=== PATIENT | male | born 1995 | race Caucasian/White ===

== ENCOUNTER 2017-02-09 22:49 | Emergency (ER) | payer OTHER, MEDICAID ==
[2017-02-09 23:04] VITALS: BP 154/100; PULSE 98; RESP 18; TEMP 98.7; O2SAT 95
--- NOTE | 2017-02-09 23:09 | PD ---
HPI Chief Complaint: Lind Act Time Seen by Provider: 23:03 Travel History International Travel<30 days: No Contact w/Intl Traveler<30days: No History of Present Illness HPI 21yo M brought in by EVAC as lind act today. As per EVAC, pt was diaphoretic, hypotensive and [place] police [place] and vomited. Pt said he was passing a cigarette but denies drugs. As per Lind Act, pt made statements that he intentionally cut himself and a knife was found on him. He does have superficial lacerations on left forearm but he denies cutting himself. He does not know where they come from. Denies any fever, chest pain, sob, abdominal pain. He states his nausea resolved. Pt is mildly tachycardic but hypertensive here. [facility] Social History Tobacco Use: No Allergies-Medications (Allergen,Severity, Reaction): Coded Allergies: No Known Allergies (Unverified , 02/09/17) Reported Meds & Prescriptions Reported Meds & Active Scripts Active No Active Prescriptions or Reported Medications Review of Systems Except as stated in HPI: all other systems reviewed are Neg Physical Exam Narrative GENERAL: 21yo M in mild distress. SKIN: Diaphoretic. HEAD: Atraumatic. Normocephalic. EYES: Pupils equal and round at 4mm bilaterally. ENT: No nasal bleeding or discharge. Mucous membranes pink and moist. NECK: Trachea midline. No JVD. CARDIOVASCULAR: Regular rate and rhythm. No murmur appreciated. RESPIRATORY: No accessory muscle use. Clear to auscultation. Breath sounds equal bilaterally. GASTROINTESTINAL: Abdomen soft, non-tender, nondistended. MUSCULOSKELETAL: No obvious deformities. No clubbing. No cyanosis. No edema. LUE: Multiple very superficial lacerations on left forearm. Distal pulses intact. NEUROLOGICAL: Awake and alert. No obvious cranial nerve deficits. Motor grossly within normal limits. Normal speech. Data Data Last Documented VS Vital Signs Date Time Temp Pulse Resp B/P (MAP) Pulse Ox O2 Delivery O2 Flow Rate FiO2 02/10/17 06:16 99.0 65 18 130/59 (82) 97 Room Air Orders Orders Complete Blood Count With Diff (02/09/17 23:03) Comprehensive Metabolic Panel (02/09/17 23:03) Urinalysis - C+S If Indicated (02/09/17 23:03) Psych Screen (02/09/17 23:03) Drug Screen, Random Urine (02/09/17 23:03) Alcohol (Ethanol) (02/09/17 23:03) Salicylates (Aspirin) (02/09/17 23:03) Tylenol (Acetaminophen) (02/09/17 23:03) Sodium Chlor 0.9% 1000 Ml Inj (Ns 1000 M (02/09/17 23:15) Labs Laboratory Tests Test 02/09/17 23:10 White Blood Count 7.4 TH/MM3 Red Blood Count 4.72 MIL/MM3 Hemoglobin 14.8 GM/DL Hematocrit 42.9 % Mean Corpuscular Volume 90.8 FL Mean Corpuscular Hemoglobin 31.3 PG Mean Corpuscular Hemoglobin Concent 34.4 % Red Cell Distribution Width 13.3 % Platelet Count 223 TH/MM3 Mean Platelet Volume 9.3 FL Neutrophils (%) (Auto) 57.9 % Lymphocytes (%) (Auto) 31.4 % Monocytes (%) (Auto) 8.8 % Eosinophils (%) (Auto) 1.5 % Basophils (%) (Auto) 0.4 % Neutrophils # (Auto) 4.3 TH/MM3 Lymphocytes # (Auto) 2.3 TH/MM3 Monocytes # (Auto) 0.7 TH/MM3 Eosinophils # (Auto) 0.1 TH/MM3 Basophils # (Auto) 0.0 TH/MM3 CBC Comment DIFF FINAL Differential Comment Blood Urea Nitrogen 12 MG/DL Creatinine 1.20 MG/DL Random Glucose 84 MG/DL Total Protein 6.5 GM/DL Albumin 3.4 GM/DL Calcium Level 8.6 MG/DL Alkaline Phosphatase 64 U/L Aspartate Amino Transf (AST/SGOT) 80 U/L Alanine Aminotransferase (ALT/SGPT) 158 U/L Total Bilirubin 0.5 MG/DL Sodium Level 145 MEQ/L Potassium Level 3.4 MEQ/L Chloride Level 110 MEQ/L Carbon Dioxide Level 26.2 MEQ/L Anion Gap 9 MEQ/L Estimat Glomerular Filtration Rate 77 ML/MIN Salicylates Level LESS THAN 1.7 MG/DL Acetaminophen Level LESS THAN 2.0 MCG/ML Ethyl Alcohol Level LESS THAN 3 MG/DL MDM Medical Decision Making Medical Screen Exam Complete: Yes Emergency Medical Condition: Yes Interpretation(s) EKG: Sinus tachycardia at 102bpm. LAD. No ST segment elevation or depression. Differential Diagnosis Drug use vs. intoxication vs. suicidal ideation vs. dehydration Narrative Course 21yo M brought in as lind act for suicidal ideation. Pt had a knife on him and told officer that he cut himself. Denied to me. Labs reviewed, no leukocytosis. Elevated AST/ALT. Pt has no abdominal pain. Alcohol negative. Acetaminophen and salicylate negative. Pt given NS IVF. Vital signs improved. Pt is medically clear for psych evaluation. Diagnosis Primary Impression: Suicidal ideation Scripts No Active Prescriptions or Reported Meds Lilibeth Curry DO Feb 09, 2017 23:09
[2017-02-09] MEDS ORDERED: SODIUM CHLOR 0.9% 1000 ML INJ 1,000 ML IV ONE (23:15)
[2017-02-10 00:25] LABS: AUTOMATED NEUTROPHIL # 4.3 TH/MM3 (1.8-7.7); BASOPHIL % 0.4 % (0.0-2.0); EOSINOPHIL # 0.1 TH/MM3 (0-0.4); EOSINOPHIL % 1.5 % (0.0-4.0); HEMATOCRIT 42.9 % (39.0-51.0); HEMO FLAGS DIFF FINAL; LYMPH % 31.4 % (9.0-44.0); LYMPHOCYTE # 2.3 TH/MM3 (1.0-4.8); MEAN CELL VOLUME 90.8 FL (80.0-100.0); MEAN CORPUSCULAR HEMOGLOBIN 31.3 PG (27.0-34.0); MEAN CORPUSCULAR HGB CONC 34.4 % (32.0-36.0); MONO % 8.8 % (0.0-8.0); NEUT % 57.9 % (16.0-70.0); PLATELET COUNT 223 TH/MM3 (150-450); RED BLOOD COUNT 4.72 MIL/MM3 (4.50-5.90); RED CELL DISTRIBUTION WIDTH 13.3 % (11.6-17.2); WHITE BLOOD COUNT 7.4 TH/MM3 (4.0-11.0)
[2017-02-10 00:40] LABS: ALKALINE PHOSPHATASE 64 U/L (45-117); TOTAL BILIRUBIN ADULT 0.5 MG/DL (0.2-1.0)
[2017-02-10 00:41] LABS: ALT (GPT) 158 U/L (9-52); ANION GAP 9 MEQ/L (5-15); AST (GOT) 80 U/L (15-39); BICARBONATE 26.2 MEQ/L (21.0-32.0); BLOOD UREA NITROGEN 12 MG/DL (7-18); CHLORIDE 110 MEQ/L (98-107); GLOMERULAR FILTRATION RATE 77 ML/MIN (>89); POTASSIUM 3.4 MEQ/L (3.5-5.1); SODIUM (NA) 145 MEQ/L (136-145)
[2017-02-10 00:50] LABS: ACETAMINOPHEN LESS THAN 2.0 MCG/ML (10.0-30.0); ALCOHOL LESS THAN 3 MG/DL (0-5)
[2017-02-10 02:21] VITALS: BP 109/59; PULSE 80; RESP 17; O2SAT 100
[2017-02-10 06:16] VITALS: BP 130/59; PULSE 65; RESP 18; TEMP 99; O2SAT 97
[2017-02-10 10:51] LABS: BLOOD, URINE NEG (NEG); GLUCOSE,URINE NEG (NEG); KETONE, URINE NEG (NEG); NITRITE,URINE NEG (NEG); URINE COLOR LIGHT-YELLOW (YELLW/STRAW)
[2017-02-10 10:59] LABS: COMMENT (UR) CULT NOT INDICATED; CULTURE IF INDICATED CULT NOT INDICATED
--- NOTE | 2017-02-10 13:35 | EKG ---
Date Performed: 02/09/2017 Time Performed: 22:58:49 PTAGE: 21 years EKG: SINUS TACHYCARDIA ABNORMAL RHYTHM ECG Compared to PREVIOUS TRACING , the extreme sinus tachycardia is no longer evident. The septal T-wave changes have resolved. The tracing no longer meets criteria for right ventricular hypertrophy and rig ht axis deviation. Significant serial changes have occurred since the prior tracing. PREVIOUS TRACING DOCTOR: Mable Reddy Interpretating Date/Time 02/10/2017 13:34:01
[2017-02-10 16:26] VITALS: BP 118/66; PULSE 55; TEMP 96.3; O2SAT 97
--- NOTE | 2017-02-10 17:13 | PD ---
History of Present Illness Chief Complaint: OD/ Ingestion Time Seen by Provider: 16:30 Travel History International Travel<30 Days: No Contact w/Intl Traveler<30days: No Known affected area: No Legal Status Legal Status: Lind Act Lind Act Signed By: Tiff Basilio History of Present Illness: History of Present Illness HPI 3o yo male with no psychiatric history brought in by EVAC under a lind act initiated by RODRIGUEZ. As per Lind Act, pt made statements that he intentionally cut himself and a knife was found on him.He has very superficial lacerations on left arm which he tells me are from work. . As per EVAC, pt was diaphoretic , hypotensive and walked up to the policeman and vomited.he admits that he smoked a cigar and he believes it was laced with spice. His toxicology is negative for any substance. He was monitored in secure environment and has presented no behavioral concerns and no suicidality. Patient is alert and oriented, calm and engaging. Speech is clear, logical. There is no psychosis and no daylin. He denies any suicidal ideation and he denies that he told the police that he wanted to hurt himself. He states that he was walking to his grandparents house with a friend and that the friend gave him some cigar to smoke. It was after he smoked the cigar that he felt sick. He denies any psychiatric symptomatology and is requesting to be discharged. he tells me he has to go home as he is starting anew job and needs to take care of his taylor by tomorrow in order not to go to long-term. PFSH Past Medical History Medical History: Denies Significant Hx Diminished Hearing: No Tetanus Vaccination: Unknown Influenza Vaccination: No Past Surgical History Surgical History: No Previous Surgery Psychiatric History Psychiatric History Hx Psychiatric Treatment: DENIES at present. Did receive tretametn for ADDas a child History of Inpatient Treatment: No Guns or firearms in home: No Social History Single, lives with grandparents. 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 Hx Alcohol Use: Yes Hx Tobacco Use: No Hx Substance Use: Yes (K2) Substance Use Type: Alcohol, Crack, Marijuana, Amphetamines-Stimulants, Nicotine/Cigarettes, Prescription Medications, Benzos (Valium,Xanax), Heroin, Cocaine, Synth Opiates-Pain Pills Other Substances Used: In the past. currently denies use. Hx of Substance Use Treatment: Yes Family Psychiatric History Negative Allergies-Medications (Allergen,Severity, Reaction): Coded Allergies: No Known Allergies (Unverified , 02/09/17) Reported Meds & Prescriptions Reported Meds & Active Scripts Active No Active Prescriptions or Reported Medications MDM Medical Decision Making Medical Record Reviewed: Yes Assessment/Plan 3o yo male with no psychiatric history brought in by EVAC under a lind act initiated by RODRIGUEZ. As per Lind Act, pt made statements that he intentionally cut himself and a knife was found on him.He has very superficial lacerations on left arm which he tells me are from work. . As per EVAC, pt was diaphoretic , hypotensive and walked up to the policeman and vomited.he admits that he smoked a cigar and he believes it was laced with spice. His toxicology is negative for any substance. He was monitored in secure environment and has presented no behavioral concerns and no suicidality. No evidence of unstable mental illness as defined under the Lind act.Main issue seems to be substance use. Psychiatrically clear for discharge. Lift Lind act. Orders Orders Complete Blood Count With Diff (02/09/17 23:03) Comprehensive Metabolic Panel (02/09/17 23:03) Urinalysis - C+S If Indicated (02/09/17 23:03) Psych Screen (02/09/17 23:03) Drug Screen, Random Urine (02/09/17 23:03) Alcohol (Ethanol) (02/09/17 23:03) Salicylates (Aspirin) (02/09/17 23:03) Tylenol (Acetaminophen) (02/09/17 23:03) Sodium Chlor 0.9% 1000 Ml Inj (Ns 1000 M (02/09/17 23:15) Electrocardiogram (02/09/17 22:58) Diet Regular Basic (02/10/17 Breakfast) Diet Regular Basic (02/10/17 Lunch) Diet Regular Basic (02/10/17 Dinner) Results Vital Signs Date Time Temp Pulse Resp B/P (MAP) Pulse Ox O2 Delivery O2 Flow Rate FiO2 10/12/17 16:26 96.3 55 118/66 (83) 97 02/10/17 06:16 99.0 65 18 130/59 (82) 97 Room Air 02/10/17 02:21 80 17 109/59 (76) 100 Room Air 02/09/17 23:04 98.7 98 18 154/100 (118) 95 Laboratory Tests Test 02/09/17 23:10 02/10/17 10:00 White Blood Count 7.4 Red Blood Count 4.72 Hemoglobin 14.8 Hematocrit 42.9 Mean Corpuscular Volume 90.8 Mean Corpuscular Hemoglobin 31.3 Mean Corpuscular Hemoglobin Concent 34.4 Red Cell Distribution Width 13.3 Platelet Count 223 Mean Platelet Volume 9.3 Neutrophils (%) (Auto) 57.9 Lymphocytes (%) (Auto) 31.4 Monocytes (%) (Auto) 8.8 Eosinophils (%) (Auto) 1.5 Basophils (%) (Auto) 0.4 Neutrophils # (Auto) 4.3 Lymphocytes # (Auto) 2.3 Monocytes # (Auto) 0.7 Eosinophils # (Auto) 0.1 Basophils # (Auto) 0.0 CBC Comment DIFF FINAL Differential Comment Blood Urea Nitrogen 12 Creatinine 1.20 Random Glucose 84 Total Protein 6.5 Albumin 3.4 Calcium Level 8.6 Alkaline Phosphatase 64 Aspartate Amino Transf (AST/SGOT) 80 Alanine Aminotransferase (ALT/SGPT) 158 Total Bilirubin 0.5 Sodium Level 145 Potassium Level 3.4 Chloride Level 110 Carbon Dioxide Level 26.2 Anion Gap 9 Estimat Glomerular Filtration Rate 77 Salicylates Level LESS THAN 1.7 Acetaminophen Level LESS THAN 2.0 Ethyl Alcohol Level LESS THAN 3 Urine Color LIGHT-YELLOW Urine Turbidity CLEAR Urine pH 8.0 Urine Specific [place] 1.006 Urine Protein NEG Urine Glucose (UA) NEG Urine Ketones NEG Urine Occult Blood NEG Urine Nitrite NEG Urine Bilirubin NEG Urine Urobilinogen LESS THAN 2.0 Urine Leukocyte Esterase NEG Urine WBC LESS THAN 1 Microscopic Urinalysis Comment CULT NOT INDICATED Urine Opiates Screen NEG Urine Barbiturates Screen NEG Urine Amphetamines Screen NEG Urine Benzodiazepines Screen NEG Urine Cocaine Screen NEG Urine Cannabinoids Screen NEG Diagnosis Primary Impression: Substance abuse Ruled Out: Suicidal ideation Psychiatrically Cleared: Yes Med/ Other Pt Specific Info: No Meds Exist/No RX given Prescriptions No Active Prescriptions or Reported Meds Disposition: 01 DISCHARGE HOME Condition: Stable MiltonKaylan LUGO Feb 10, 2017 17:13
--- NOTE | 2017-02-10 17:20 | PD ---
Physical Exam Narrative I was asked by the psych department to discharge patient after patient was evaluated and Lind acted lifted by psych. Patient was previously medically cleared by previous provider. Please see their documentation for full H&P. Patient denies any homicidal or suicidal ideations. Denies any medical concerns at this time. Data Data Last Documented VS Vital Signs Date Time Temp Pulse Resp B/P (MAP) Pulse Ox O2 Delivery O2 Flow Rate FiO2 02/10/17 16:26 96.3 55 118/66 (83) 97 02/10/17 06:16 18 Room Air Orders Orders Complete Blood Count With Diff (02/09/17 23:03) Comprehensive Metabolic Panel (02/09/17 23:03) Urinalysis - C+S If Indicated (02/09/17 23:03) Psych Screen (02/09/17 23:03) Drug Screen, Random Urine (02/09/17 23:03) Alcohol (Ethanol) (02/09/17 23:03) Salicylates (Aspirin) (02/09/17 23:03) Tylenol (Acetaminophen) (02/09/17 23:03) Sodium Chlor 0.9% 1000 Ml Inj (Ns 1000 M (02/09/17 23:15) Electrocardiogram (02/09/17 22:58) Diet Regular Basic (02/10/17 Breakfast) Diet Regular Basic (02/10/17 Lunch) Diet Regular Basic (02/10/17 Dinner) Ed Discharge Order (02/10/17 17:20) Labs Laboratory Tests Test 02/09/17 23:10 02/10/17 10:00 White Blood Count 7.4 TH/MM3 Red Blood Count 4.72 MIL/MM3 Hemoglobin 14.8 GM/DL Hematocrit 42.9 % Mean Corpuscular Volume 90.8 FL Mean Corpuscular Hemoglobin 31.3 PG Mean Corpuscular Hemoglobin Concent 34.4 % Red Cell Distribution Width 13.3 % Platelet Count 223 TH/MM3 Mean Platelet Volume 9.3 FL Neutrophils (%) (Auto) 57.9 % Lymphocytes (%) (Auto) 31.4 % Monocytes (%) (Auto) 8.8 % Eosinophils (%) (Auto) 1.5 % Basophils (%) (Auto) 0.4 % Neutrophils # (Auto) 4.3 TH/MM3 Lymphocytes # (Auto) 2.3 TH/MM3 Monocytes # (Auto) 0.7 TH/MM3 Eosinophils # (Auto) 0.1 TH/MM3 Basophils # (Auto) 0.0 TH/MM3 CBC Comment DIFF FINAL Differential Comment Blood Urea Nitrogen 12 MG/DL Creatinine 1.20 MG/DL Random Glucose 84 MG/DL Total Protein 6.5 GM/DL Albumin 3.4 GM/DL Calcium Level 8.6 MG/DL Alkaline Phosphatase 64 U/L Aspartate Amino Transf (AST/SGOT) 80 U/L Alanine Aminotransferase (ALT/SGPT) 158 U/L Total Bilirubin 0.5 MG/DL Sodium Level 145 MEQ/L Potassium Level 3.4 MEQ/L Chloride Level 110 MEQ/L Carbon Dioxide Level 26.2 MEQ/L Anion Gap 9 MEQ/L Estimat Glomerular Filtration Rate 77 ML/MIN Salicylates Level LESS THAN 1.7 MG/DL Acetaminophen Level LESS THAN 2.0 MCG/ML Ethyl Alcohol Level LESS THAN 3 MG/DL Urine Color LIGHT-YELLOW Urine Turbidity CLEAR Urine pH 8.0 Urine Specific [place] 1.006 Urine Protein NEG mg/dL Urine Glucose (UA) NEG mg/dL Urine Ketones NEG mg/dL Urine Occult Blood NEG Urine Nitrite NEG Urine Bilirubin NEG Urine Urobilinogen LESS THAN 2.0 MG/DL Urine Leukocyte Esterase NEG Urine WBC LESS THAN 1 /hpf Microscopic Urinalysis Comment CULT NOT INDICATED Urine Opiates Screen NEG Urine Barbiturates Screen NEG Urine Amphetamines Screen NEG Urine Benzodiazepines Screen NEG Urine Cocaine Screen NEG Urine Cannabinoids Screen NEG MDM Supervised Visit with FRANKIE: No Narrative Course Patient in no obvious distress upon re-evaluation. Any questions/concerns in reference to patient diagnosis/condition discussed and clarified prior to patient's discharge. Reinforced sheer importance of close follow up with patient 's primary physician or primary care clinic. Instructed patient to return to ED immediately, if symptoms return/worsen or for any emergent concerns. Patient showed understanding of above instructions. Further instructions and recommendations were detailed in discharge paperwork. Patient ambulated without difficulty out of ED at discharge. Diagnosis Primary Impression: Substance abuse Ruled Out: Suicidal ideation Referrals: [facility] Patient Instructions: General Instructions Additional Instruction: Follow-up with your primary care physician and/or Jayro Hernandez for further evaluation. Don't do drugs. Return to the emergency department if symptoms get worse or for any emergent concerns. Scripts No Active Prescriptions or Reported Meds Disposition: 01 DISCHARGE HOME Condition: Stable Fran Figueredo Feb 10, 2017 17:20
[2017-02-10 17:38] VITALS: BP 188/66; TEMP 98.3
== END 2017-02-10 17:41 | disposition home or self-care (01) ==
LOC: NEPC 22:49 → NEPJ 02-10 17:41
DX: F19.10 Other psychoactive substance abuse, uncomplicated (principal); I95.9 Hypotension, unspecified; R61 Generalized hyperhidrosis
CPT/HCPCS: 80053; 80307; 81001; 85025; 93005; 99284; J7030

== ENCOUNTER 2017-03-30 19:47 | Emergency (ER) | payer OTHER ==
[~2017-03-30] VITALS: Ht 175.3 cm; Wt 65.0 kg
[2017-03-30 20:09] VITALS: BP 117/63; PULSE 94; RESP 20; TEMP 98.3; O2SAT 100
--- NOTE | 2017-03-30 20:33 | PD ---
HPI Chief Complaint: Psychiatric Symptoms Time Seen by Provider: 20:03 Travel History International Travel<30 days: No Contact w/Intl Traveler<30days: No Traveled to known affect area: No History of Present Illness HPI 21-year-old male presents emergency Department under Lind act. According to law enforcement report the patient "jumped out in front of his vehicle and jumped in the bed of the truck screaming for help. [place] people chasing him. He also admitted he has not slept in days and can feel his brain dripping." The patient does [place] and sensitivity that he was hiding from people with guns. He does appear to be paranoid and is making constant movements. He says he's been awake for a couple of days and he thought the people were after him. He quotes his "body and brain is sleep deprived." He does admit to injecting amphetamine today. He denies auditory or visual hallucinations. Denies EtOH. Reports tobacco use. Denies suicidal or homicidal ideations. Symptoms are exacerbated by sleep deprivation. No known relieving factors. He has no emergent medical complaints at this time; denies chest pain, shortness of breath, abdominal pain, nausea, vomiting, change in urine and stool. He states he started thirsty and would like something to drink. Allergies to Biaxin. Denies taking current medications. Does not have a primary care provider. Denies significant past medical history. PFSH Past Medical History Diminished Hearing: No Social History Alcohol Use: Yes Tobacco Use: Yes Substance Use: Yes (K2) Allergies-Medications (Allergen,Severity, Reaction): Coded Allergies: No Known Allergies (Unverified , 02/09/17) Reported Meds & Prescriptions Reported Meds & Active Scripts Active No Active Prescriptions or Reported Medications Review of Systems Except as stated in HPI: all other systems reviewed are Neg Physical Exam Narrative GENERAL: Well-nourished, well-developed male patient, in no acute distress SKIN: Warm and dry. HEAD: Atraumatic. Normocephalic. EYES: Pupils equal and round at 6 mm; dilated. ENT: Mucosa pink and moist. NECK: Supple. Trachea midline. CARDIOVASCULAR: Regular rate and rhythm. No murmur appreciated. RESPIRATORY: No accessory muscle use. Clear to auscultation. Breath sounds equal bilaterally. GASTROINTESTINAL: Abdomen soft, non-tender, nondistended. Hepatic and splenic margins not palpable. Bowel sounds are active 4 quadrants. MUSCULOSKELETAL: No obvious deformities. No clubbing. No cyanosis. No edema. NEUROLOGICAL: Awake and alert. Oriented 3. No obvious cranial nerve deficits. Motor grossly within normal limits. Normal speech. Moves all extremities. 5/5 strength to all extremities. PSYCHIATRIC: No delusional thought processes. No hallucinations. Data Data Last Documented VS Vital Signs Date Time Temp Pulse Resp B/P (MAP) Pulse Ox O2 Delivery O2 Flow Rate FiO2 03/30/17 20:09 98.3 94 20 117/63 (81) 100 Room Air Orders Orders Complete Blood Count With Diff (03/30/17 20:13) Comprehensive Metabolic Panel (03/30/17 20:13) Psych Screen (03/30/17 20:13) Drug Screen, Random Urine (03/30/17 20:13) Alcohol (Ethanol) (03/30/17 20:13) Salicylates (Aspirin) (03/30/17 20:13) Tylenol (Acetaminophen) (03/30/17 20:13) MDM Medical Decision Making Medical Screen Exam Complete: Yes Emergency Medical Condition: Yes Medical Record Reviewed: Yes Differential Diagnosis Drug intoxication, drug induced psychosis, medical clearance Narrative Course Patient presents under a Lind act. Physical examination and vital signs are essentially unremarkable. Patient has no medical complaints to report. Psych screen has been ordered. If the laboratory results are unremarkable, the patient will be medically cleared for psychiatric evaluation and disposition. Diagnosis Primary Impression: Medical clearance for psychiatric admission Scripts No Active Prescriptions or Reported Meds Condition: Stable Tayler Saldivar [place] Mar 30, 2017 20:33
[2017-03-30 22:22] LABS: AUTOMATED NEUTROPHIL # 11.7 TH/MM3 (1.8-7.7); BASOPHIL % 0.3 % (0.0-2.0); EOSINOPHIL % 0.3 % (0.0-4.0); HEMATOCRIT 42.1 % (39.0-51.0); LYMPH % 11.6 % (9.0-44.0); LYMPHOCYTE # 1.7 TH/MM3 (1.0-4.8); MEAN CORPUSCULAR HEMOGLOBIN 32.4 PG (27.0-34.0); MONO % 7.4 % (0.0-8.0); NEUT % 80.4 % (16.0-70.0); PLATELET COUNT 215 TH/MM3 (150-450); RED BLOOD COUNT 4.67 MIL/MM3 (4.50-5.90); RED CELL DISTRIBUTION WIDTH 13.5 % (11.6-17.2); WHITE BLOOD COUNT 14.5 TH/MM3 (4.0-11.0)
[2017-03-30 22:23] LABS: HEMO FLAGS AUTO DIFF
[2017-03-30 22:26] LABS: ANION GAP 8 MEQ/L (5-15); BICARBONATE 26.6 MEQ/L (21.0-32.0); BLOOD UREA NITROGEN 26 MG/DL (7-18); CHLORIDE 100 MEQ/L (98-107); GLOMERULAR FILTRATION RATE 91 ML/MIN (>89); POTASSIUM 3.6 MEQ/L (3.5-5.1); SODIUM (NA) 135 MEQ/L (136-145)
[2017-03-30 22:28] LABS: ALT (GPT) 112 U/L (9-52); AST (GOT) 43 U/L (15-39)
[2017-03-30 22:29] LABS: ALKALINE PHOSPHATASE 79 U/L (45-117); TOTAL BILIRUBIN ADULT 1.6 MG/DL (0.2-1.0)
[2017-03-30 22:36] LABS: ACETAMINOPHEN LESS THAN 2.0 MCG/ML (10.0-30.0); ALCOHOL LESS THAN 3 MG/DL (0-5)
[2017-03-30 23:05] LABS: PLATELET ESTIMATE SMEAR NORMAL (NORMAL); PLATELET MORPHOLOGY NORMAL (NORMAL)
[2017-03-30 23:06] LABS: SCAN/DIFF AUTO DIFF CONFIRMED
[2017-03-30 23:58] VITALS: BP 110/60; PULSE 63; RESP 18; TEMP 97.2; O2SAT 100
--- NOTE | 2017-03-31 00:01 | PD ---
Physical Exam Narrative I, Dr. Curry, have reviewed the advance practice practitioner's documentation and am in agreement, met with the patient face to face, made the diagnosis, and the medical decision making was done by me. *My assessment and Findings: Drug induced psychosis vs. polysubstance abuse 21yo M with history of polysubstance abuse here under Lind Act for what sounds like paranoia. Pt is not really answering my questions but will follow commands. Moving all extremities. Labs reviewed, mild leukocytosis at 14.5. Elevated bilirubin and liver enzymes. He did have elevated liver enzymes from prior lab in 01/2017. Pt has no abdominal tenderness on exam and is well appearing. Will not do further work up at this time unless he complains of abdominal pain. Acetaminophen negative. Alcohol and salicylate negative. Pt is medically clear for psych evaluation at this time. Urine drug screen pending. Data Data Last Documented VS Vital Signs Date Time Temp Pulse Resp B/P (MAP) Pulse Ox O2 Delivery O2 Flow Rate FiO2 03/31/17 11:25 03/31/17 10:00 63 18 Room Air 03/31/17 06:00 97.1 99 Orders Orders Complete Blood Count With Diff (03/30/17 20:13) Comprehensive Metabolic Panel (03/30/17 20:13) Psych Screen (03/30/17 20:13) Drug Screen, Random Urine (03/30/17 20:13) Alcohol (Ethanol) (03/30/17 20:13) Salicylates (Aspirin) (03/30/17 20:13) Tylenol (Acetaminophen) (03/30/17 20:13) Diet Regular Basic (03/31/17 Breakfast) Ed Discharge Order (03/31/17 11:14) Labs Laboratory Tests Test 03/30/17 21:18 03/31/17 05:22 White Blood Count 14.5 TH/MM3 Red Blood Count 4.67 MIL/MM3 Hemoglobin 15.1 GM/DL Hematocrit 42.1 % Mean Corpuscular Volume 90.0 FL Mean Corpuscular Hemoglobin 32.4 PG Mean Corpuscular Hemoglobin Concent 36.0 % Red Cell Distribution Width 13.5 % Platelet Count 215 TH/MM3 Mean Platelet Volume 8.9 FL Neutrophils (%) (Auto) 80.4 % Lymphocytes (%) (Auto) 11.6 % Monocytes (%) (Auto) 7.4 % Eosinophils (%) (Auto) 0.3 % Basophils (%) (Auto) 0.3 % Neutrophils # (Auto) 11.7 TH/MM3 Lymphocytes # (Auto) 1.7 TH/MM3 Monocytes # (Auto) 1.1 TH/MM3 Eosinophils # (Auto) 0.0 TH/MM3 Basophils # (Auto) 0.0 TH/MM3 CBC Comment AUTO DIFF Differential Comment AUTO DIFF CONFIRMED Toxic Granulation Platelet Estimate NORMAL Platelet Morphology Comment NORMAL Red Cell Morphology Comment NORMAL Blood Urea Nitrogen 26 MG/DL Creatinine 1.04 MG/DL Random Glucose 96 MG/DL Total Protein 8.2 GM/DL Albumin 4.6 GM/DL Calcium Level 9.1 MG/DL Alkaline Phosphatase 79 U/L Aspartate Amino Transf (AST/SGOT) 43 U/L Alanine Aminotransferase (ALT/SGPT) 112 U/L Total Bilirubin 1.6 MG/DL Sodium Level 135 MEQ/L Potassium Level 3.6 MEQ/L Chloride Level 100 MEQ/L Carbon Dioxide Level 26.6 MEQ/L Anion Gap 8 MEQ/L Estimat Glomerular Filtration Rate 91 ML/MIN Salicylates Level LESS THAN 1.7 MG/DL Acetaminophen Level LESS THAN 2.0 MCG/ML Ethyl Alcohol Level LESS THAN 3 MG/DL Urine Opiates Screen NEG Urine Barbiturates Screen NEG Urine Amphetamines Screen POS Urine Benzodiazepines Screen NEG Urine Cocaine Screen NEG Urine Cannabinoids Screen NEG MDM Supervised Visit with FRANKIE: Yes Diagnosis Primary Impression: Medical clearance for psychiatric admission Scripts No Active Prescriptions or Reported Meds Condition: Stable Lilibeth Curry DO Mar 31, 2017 00:01
[2017-03-31 02:13] VITALS: BP 100/56; PULSE 63; RESP 16; TEMP 95.8; O2SAT 100
[2017-03-31 06:00] VITALS: BP 92/53; PULSE 64; RESP 18; TEMP 97.1; O2SAT 99
[2017-03-31 10:00] VITALS: BP 103/55; PULSE 63; RESP 18
--- NOTE | 2017-03-31 10:44 | PD ---
History of Present Illness Chief Complaint: Psychiatric Symptoms Time Seen by Provider: 10:30 Travel History International Travel<30 Days: No Contact w/Intl Traveler<30days: No Known affected area: No Legal Status Legal Status: Lind Act Lind Act Signed By: [place] Lind Act Comment: 2016 @ 1918 History of Present Illness: 21-year-old male self admitted amphetamine abuser came in intoxicated early this morning. Patient has been sleeping for the last several hours but is awake and alert for interview. He is denying any suicidal or homicidal ideation. He denies psychotic symptoms. His cognition is intact. He is verbally carisa for safety and he is competent to do so. He was offered transportation to [facility] for treatment of drug abuse but he does not want this. He wants to return to his home, with his grandparents in [place]. [facility] Past Medical History Medical History: Denies Significant Hx Diminished Hearing: No Psychiatric History Psychiatric History Hx Psychiatric Treatment: ADD, SUBSTANCE ABUSE History of Inpatient Treatment: No Guns or firearms in home: Yes Social History Hx Alcohol Use: Yes Hx Tobacco Use: Yes Hx Substance Use: Yes (K2) Substance Use Type: Alcohol, Crack, Marijuana, Amphetamines-Stimulants, Nicotine/Cigarettes, Prescription Medications, Benzos (Valium,Xanax), Heroin, Cocaine, Synth Opiates-Pain Pills Other Substances Used: In the past. currently denies use. Hx of Substance Use Treatment: Yes Allergies-Medications (Allergen,Severity, Reaction): Coded Allergies: No Known Allergies (Unverified , 02/09/17) Reported Meds & Prescriptions Reported Meds & Active Scripts Active No Active Prescriptions or Reported Medications Review of Systems Except as stated in HPI: all other systems reviewed are Neg Mental Status Examination Appearance: Appropriate Consciousness: Alert Orientation: x4 Motor Activity: Normal gait Speech: Unremarkable Language: Adequate Fund of Knowledge: Adequate Attention and Concentration: Adequate Memory: Unremarkable Mood: Appropriate Affect: Appropriate Thought Process & Associations: Intact Thought Content: Appropriate Hallucination Type: None Delusion Type: None Suicidal Ideation: No Suicidal Plan: No Suicidal Intention: No Homicidal Ideation: No Homicidal Plan: No Homicidal Intention: No Insight: Adequate Judgment: Adequate MDM Medical Decision Making Medical Record Reviewed: Yes Assessment/Plan Medical record reviewed. Patient interviewed at bedside. Case discussed with nurse Isidoro. Patient does not meet criteria for Lind act and does not meet criteria for involuntary psychiatric hospitalization. Patient is wanting to go home and does not want assistance from [facility] for his obvious drug abuse. Orders Orders Complete Blood Count With Diff (03/30/17 20:13) Comprehensive Metabolic Panel (03/30/17 20:13) Psych Screen (03/30/17 20:13) Drug Screen, Random Urine (03/30/17 20:13) Alcohol (Ethanol) (03/30/17 20:13) Salicylates (Aspirin) (03/30/17 20:13) Tylenol (Acetaminophen) (03/30/17 20:13) Diet Regular Basic (03/31/17 Breakfast) Results Vital Signs Date Time Temp Pulse Resp B/P (MAP) Pulse Ox O2 Delivery O2 Flow Rate FiO2 03/31/17 10:00 63 18 103/55 (71) Room Air 03/31/17 06:00 97.1 64 18 92/53 (66) 99 Room Air 03/31/17 02:13 95.8 63 16 100/56 (71) 100 Room Air 03/30/17 23:58 97.2 63 18 110/60 (77) 100 Room Air 03/30/17 20:09 98.3 94 20 117/63 (81) 100 Room Air Laboratory Tests Test 03/30/17 21:18 03/31/17 05:22 White Blood Count 14.5 Red Blood Count 4.67 Hemoglobin 15.1 Hematocrit 42.1 Mean Corpuscular Volume 90.0 Mean Corpuscular Hemoglobin 32.4 Mean Corpuscular Hemoglobin Concent 36.0 Red Cell Distribution Width 13.5 Platelet Count 215 Mean Platelet Volume 8.9 Neutrophils (%) (Auto) 80.4 Lymphocytes (%) (Auto) 11.6 Monocytes (%) (Auto) 7.4 Eosinophils (%) (Auto) 0.3 Basophils (%) (Auto) 0.3 Neutrophils # (Auto) 11.7 Lymphocytes # (Auto) 1.7 Monocytes # (Auto) 1.1 Eosinophils # (Auto) 0.0 Basophils # (Auto) 0.0 CBC Comment AUTO DIFF Differential Comment AUTO DIFF CONFIRMED Toxic Granulation Platelet Estimate NORMAL Platelet Morphology Comment NORMAL Red Cell Morphology Comment NORMAL Blood Urea Nitrogen 26 Creatinine 1.04 Random Glucose 96 Total Protein 8.2 Albumin 4.6 Calcium Level 9.1 Alkaline Phosphatase 79 Aspartate Amino Transf (AST/SGOT) 43 Alanine Aminotransferase (ALT/SGPT) 112 Total Bilirubin 1.6 Sodium Level 135 Potassium Level 3.6 Chloride Level 100 Carbon Dioxide Level 26.6 Anion Gap 8 Estimat Glomerular Filtration Rate 91 Salicylates Level LESS THAN 1.7 Acetaminophen Level LESS THAN 2.0 Ethyl Alcohol Level LESS THAN 3 Urine Opiates Screen NEG Urine Barbiturates Screen NEG Urine Amphetamines Screen POS Urine Benzodiazepines Screen NEG Urine Cocaine Screen NEG Urine Cannabinoids Screen NEG Diagnosis Primary Impression: Amphetamine abuse Prescriptions No Active Prescriptions or Reported Meds Condition: Vikas Plata MD Mar 31, 2017 10:44
--- NOTE | 2017-03-31 11:14 | PD ---
Physical Exam Time Seen by Provider: 11:[address] Land has evaluated the patient, lifted the Lind act and cleared the patient for discharge. Data Data Last Documented VS Vital Signs Date Time Temp Pulse Resp B/P (MAP) Pulse Ox O2 Delivery O2 Flow Rate FiO2 03/31/17 10:00 63 18 103/55 (71) Room Air 03/31/17 06:00 97.1 99 Orders Orders Complete Blood Count With Diff (03/30/17 20:13) Comprehensive Metabolic Panel (03/30/17 20:13) Psych Screen (03/30/17 20:13) Drug Screen, Random Urine (03/30/17 20:13) Alcohol (Ethanol) (03/30/17 20:13) Salicylates (Aspirin) (03/30/17 20:13) Tylenol (Acetaminophen) (03/30/17 20:13) Diet Regular Basic (03/31/17 Breakfast) Labs Laboratory Tests Test 03/30/17 21:18 03/31/17 05:22 White Blood Count 14.5 TH/MM3 Red Blood Count 4.67 MIL/MM3 Hemoglobin 15.1 GM/DL Hematocrit 42.1 % Mean Corpuscular Volume 90.0 FL Mean Corpuscular Hemoglobin 32.4 PG Mean Corpuscular Hemoglobin Concent 36.0 % Red Cell Distribution Width 13.5 % Platelet Count 215 TH/MM3 Mean Platelet Volume 8.9 FL Neutrophils (%) (Auto) 80.4 % Lymphocytes (%) (Auto) 11.6 % Monocytes (%) (Auto) 7.4 % Eosinophils (%) (Auto) 0.3 % Basophils (%) (Auto) 0.3 % Neutrophils # (Auto) 11.7 TH/MM3 Lymphocytes # (Auto) 1.7 TH/MM3 Monocytes # (Auto) 1.1 TH/MM3 Eosinophils # (Auto) 0.0 TH/MM3 Basophils # (Auto) 0.0 TH/MM3 CBC Comment AUTO DIFF Differential Comment AUTO DIFF CONFIRMED Toxic Granulation Platelet Estimate NORMAL Platelet Morphology Comment NORMAL Red Cell Morphology Comment NORMAL Blood Urea Nitrogen 26 MG/DL Creatinine 1.04 MG/DL Random Glucose 96 MG/DL Total Protein 8.2 GM/DL Albumin 4.6 GM/DL Calcium Level 9.1 MG/DL Alkaline Phosphatase 79 U/L Aspartate Amino Transf (AST/SGOT) 43 U/L Alanine Aminotransferase (ALT/SGPT) 112 U/L Total Bilirubin 1.6 MG/DL Sodium Level 135 MEQ/L Potassium Level 3.6 MEQ/L Chloride Level 100 MEQ/L Carbon Dioxide Level 26.6 MEQ/L Anion Gap 8 MEQ/L Estimat Glomerular Filtration Rate 91 ML/MIN Salicylates Level LESS THAN 1.7 MG/DL Acetaminophen Level LESS THAN 2.0 MCG/ML Ethyl Alcohol Level LESS THAN 3 MG/DL Urine Opiates Screen NEG Urine Barbiturates Screen NEG Urine Amphetamines Screen POS Urine Benzodiazepines Screen NEG Urine Cocaine Screen NEG Urine Cannabinoids Screen NEG MDM Supervised Visit with FRANKIE: No Narrative Course Dr. Land has evaluated the patient, lifted the Lind act and cleared the patient for discharge.. Patient contracts safety. Denies suicidal or homicidal ideations. Patient will be provided community resource packet to [facility] for follow-up. Has friends and family for support. Patient was medically cleared by alternate provider prior to psych screening. Patient has been evaluated by psychiatry and and is now cleared for discharge. Diagnosis Primary Impression: Amphetamine abuse Referrals: [facility] (Out patient) call for appointment Medication Management [facility] Primary Care Physician Psychiatrist [facility] Patient Instructions: General Instructions, Methamphetamine Abuse (ED) Departure Forms: Tests/Procedures Additional Instruction: Contract safety to your self and others Stop using drugs Follow-up with psychiatry Follow-up with primary care provider Follow-up with Dylan Renteria Return to the emergency department immediately with worsening of symptoms Med/Other Pt SpecificInfo: No Change to Meds, No Meds Exist/No RX given Scripts No Active Prescriptions or Reported Meds Disposition: 01 DISCHARGE HOME Condition: Stable Tayler Saldivar Mar 31, 2017 11:14
== END 2017-03-31 11:26 | disposition home or self-care (01) ==
LOC: NEPD 19:47 → NEPJ 03-31 11:26
DX: F15.10 Other stimulant abuse, uncomplicated (principal); D72.829 Elevated white blood cell count, unspecified; R74.8 Abnormal levels of other serum enzymes; Z72.0 Tobacco use
CPT/HCPCS: 80053; 80307; 85025; 99284

== ENCOUNTER 2017-04-13 16:58 | Emergency (ER) | payer MEDICAID, OTHER ==
[~2017-04-13] VITALS: Ht 175.3 cm; Wt 65.0 kg
[2017-04-13 17:00] VITALS: BP 110/75; PULSE 95; RESP 18; TEMP 98.2; O2SAT 99
[2017-04-13 17:40] VITALS: BP 122/65; PULSE 84; RESP 18; TEMP 97.6; O2SAT 98
[2017-04-13 18:04] LABS: AUTOMATED NEUTROPHIL # 6.5 TH/MM3 (1.8-7.7); BASOPHIL # 0.4 TH/MM3 (0-0.2); BASOPHIL % 4.3 % (0.0-2.0); EOSINOPHIL % 0.2 % (0.0-4.0); HEMATOCRIT 42.5 % (39.0-51.0); LYMPH % 18.7 % (9.0-44.0); LYMPHOCYTE # 1.7 TH/MM3 (1.0-4.8); MEAN CELL VOLUME 91.3 FL (80.0-100.0); MEAN CORPUSCULAR HEMOGLOBIN 32.5 PG (27.0-34.0); MEAN CORPUSCULAR HGB CONC 35.6 % (32.0-36.0); MONO % 6.7 % (0.0-8.0); NEUT % 70.1 % (16.0-70.0); PLATELET COUNT 266 TH/MM3 (150-450); RED BLOOD COUNT 4.65 MIL/MM3 (4.50-5.90); RED CELL DISTRIBUTION WIDTH 13.5 % (11.6-17.2); WHITE BLOOD COUNT 9.2 TH/MM3 (4.0-11.0)
[2017-04-13 18:05] LABS: HEMO FLAGS AUTO DIFF
[2017-04-13 18:20] LABS: ALT (GPT) 105 U/L (9-52); ANION GAP 10 MEQ/L (5-15); AST (GOT) 31 U/L (15-39); BICARBONATE 23.3 MEQ/L (21.0-32.0); BLOOD UREA NITROGEN 15 MG/DL (7-18); CHLORIDE 105 MEQ/L (98-107); GLOMERULAR FILTRATION RATE 109 ML/MIN (>89); POTASSIUM 3.9 MEQ/L (3.5-5.1); SODIUM (NA) 138 MEQ/L (136-145)
[2017-04-13 18:22] LABS: ALKALINE PHOSPHATASE 74 U/L (45-117); TOTAL BILIRUBIN ADULT 1.3 MG/DL (0.2-1.0)
[2017-04-13 18:25] LABS: ACETAMINOPHEN LESS THAN 2.0 MCG/ML (10.0-30.0)
[2017-04-13 18:26] LABS: ALCOHOL LESS THAN 3 MG/DL (0-5)
--- NOTE | 2017-04-13 18:36 | PD ---
HPI Chief Complaint: Psychiatric Symptoms Time Seen by Provider: 17:31 Travel History International Travel<30 days: No Contact w/Intl Traveler<30days: No Traveled to known affect area: No History of Present Illness HPI 21-year-old male presents voluntarily for psychiatric evaluation. Apparently he was brought is by his grandfather and the grandfather stated that the patient 's that he was going to shoot himself. The patient appears intoxicated on drugs. He said he was concerned that he was being "watched for identity theft. " He reports injecting "one third of ice and Stardust." He denies suicidal or homicidal ideations. Denies visual or auditory hallucinations. He has no emergent medical complaints at this time. Denies chest pain, shortness of breath, abdominal pain, vomiting. No known relieving or aggravating factors. No known allergies. Has no medical complaints. No other modifying factors or associated signs and symptoms. PFSH Past Medical History Diminished Hearing: No Social History Alcohol Use: Yes Tobacco Use: Yes Substance Use: Yes (K2) Allergies-Medications (Allergen,Severity, Reaction): Coded Allergies: No Known Allergies (Unverified , 02/09/17) Reported Meds & Prescriptions Reported Meds & Active Scripts Active No Active Prescriptions or Reported Medications Review of Systems Except as stated in HPI: all other systems reviewed are Neg Physical Exam Narrative GENERAL: Well-nourished, well-developed male patient, in no acute distress; appears intoxicated SKIN: Warm and dry. HEAD: Atraumatic. Normocephalic. EYES: Pupils equal and round at 5 mm; dilated. ENT: Mucosa pink and moist. NECK: Supple. Trachea midline. CARDIOVASCULAR: Regular rate and rhythm. No murmur appreciated. RESPIRATORY: No accessory muscle use. Clear to auscultation. Breath sounds equal bilaterally. GASTROINTESTINAL: Abdomen soft, non-tender, nondistended. Hepatic and splenic margins not palpable. Bowel sounds are active 4 quadrants. MUSCULOSKELETAL: No obvious deformities. No clubbing. No cyanosis. No edema. BACK: No CVA tenderness. NEUROLOGICAL: Awake and alert. Oriented 3. No obvious cranial nerve deficits. Motor grossly within normal limits. Normal speech. Moves all extremities. 5/5 strength to all extremities. PSYCHIATRIC: Delusional and appears to be having hallucinations. Data Data Last Documented VS Vital Signs Date Time Temp Pulse Resp B/P (MAP) Pulse Ox O2 Delivery O2 Flow Rate FiO2 04/13/17 17:40 97.6 84 18 122/65 (84) 98 Room Air Orders Orders Complete Blood Count With Diff (04/13/17 17:31) Comprehensive Metabolic Panel (04/13/17 17:31) Psych Screen (04/13/17 17:31) Drug Screen, Random Urine (04/13/17 17:31) Alcohol (Ethanol) (04/13/17 17:31) Salicylates (Aspirin) (04/13/17 17:31) Tylenol (Acetaminophen) (04/13/17 17:31) Diet Regular Basic (04/13/17 Dinner) Labs Laboratory Tests Test 04/13/17 17:46 White Blood Count 9.2 TH/MM3 Red Blood Count 4.65 MIL/MM3 Hemoglobin 15.1 GM/DL Hematocrit 42.5 % Mean Corpuscular Volume 91.3 FL Mean Corpuscular Hemoglobin 32.5 PG Mean Corpuscular Hemoglobin Concent 35.6 % Red Cell Distribution Width 13.5 % Platelet Count 266 TH/MM3 Mean Platelet Volume 7.9 FL Neutrophils (%) (Auto) 70.1 % Lymphocytes (%) (Auto) 18.7 % Monocytes (%) (Auto) 6.7 % Eosinophils (%) (Auto) 0.2 % Basophils (%) (Auto) 4.3 % Neutrophils # (Auto) 6.5 TH/MM3 Lymphocytes # (Auto) 1.7 TH/MM3 Monocytes # (Auto) 0.6 TH/MM3 Eosinophils # (Auto) 0.0 TH/MM3 Basophils # (Auto) 0.4 TH/MM3 CBC Comment AUTO DIFF Blood Urea Nitrogen 15 MG/DL Creatinine 0.89 MG/DL Random Glucose 81 MG/DL Total Protein 7.9 GM/DL Albumin 4.2 GM/DL Calcium Level 8.8 MG/DL Alkaline Phosphatase 74 U/L Aspartate Amino Transf (AST/SGOT) 31 U/L Alanine Aminotransferase (ALT/SGPT) 105 U/L Total Bilirubin 1.3 MG/DL Sodium Level 138 MEQ/L Potassium Level 3.9 MEQ/L Chloride Level 105 MEQ/L Carbon Dioxide Level 23.3 MEQ/L Anion Gap 10 MEQ/L Estimat Glomerular Filtration Rate 109 ML/MIN Salicylates Level LESS THAN 1.7 MG/DL Acetaminophen Level LESS THAN 2.0 MCG/ML Ethyl Alcohol Level LESS THAN 3 MG/DL MDM Medical Decision Making Medical Screen Exam Complete: Yes Emergency Medical Condition: Yes Medical Record Reviewed: Yes Differential Diagnosis Polysubstance abuse, drug intoxication, medical clearance for psychiatric evaluation Narrative Course Patient presents voluntarily. Physical examination and vital signs are essentially unremarkable. Patient has no medical complaints to report. Psych screen has been ordered. If the laboratory results are unremarkable, the patient will be medically cleared for psychiatric evaluation and disposition. Diagnosis Primary Impression: Medical clearance for psychiatric admission Scripts No Active Prescriptions or Reported Meds Condition: Stable Tayler Saldivar [facility] Apr 13, 2017 18:36
[2017-04-13 18:46] LABS: PLATELET ESTIMATE SMEAR NORMAL (NORMAL); PLATELET MORPHOLOGY NORMAL (NORMAL); SCAN/DIFF AUTO DIFF CONFIRMED
[2017-04-14 02:13] VITALS: BP 105/55; PULSE 64; RESP 18; O2SAT 100
[2017-04-14 06:47] VITALS: BP 111/58; PULSE 56; RESP 16; TEMP 96.5; O2SAT 100; O2SAT 16
[2017-04-14 10:00] VITALS: BP 109/57; PULSE 61; RESP 20
[2017-04-14 15:09] VITALS: BP 109/57; PULSE 61; RESP 20
--- NOTE | 2017-04-14 15:50 | PD ---
History of Present Illness Chief Complaint: Psychiatric Symptoms Time Seen by Provider: 14:45 Travel History International Travel<30 Days: No Contact w/Intl Traveler<30days: No Known affected area: No Legal Status Legal Status: Voluntary History of Present Illness: History of Present Illness HPI 21-year-old male with history of substance use disorder who presents to Ed accompanied by his grandfather voluntarily for psychiatric evaluation. The grandfather reported that the patient had made a statement indicating he wanted to shoot himself. Upon arrival to the Ed he appeared to be intoxicated and admitted to " injecting "one third of ice and Stardust." He also said he was concerned that he was being "watched for identity theft". The patient was monitored in secure environment over an extended period of time and he presented no behavioral concerns and no suicidality. His current toxicology is positive for amphetamines, benzos, and cannabinoids. He was most recently here in [facility] in March for substance use issues. Patient is seen with SON Delgado. he is alert, oriented and cooperative. His speech is clear and logical. He admits to having injected several substances while he was with some friends. He denies that this was a suicide attempt. There is no indication that he is psychotic, no daylin or hypomania. Patient reports he was sent here from [facility] for medical clearance prior to being admitted to detox. [facility] Past Medical History Diminished Hearing: No Psychiatric History Psychiatric History Hx Psychiatric Treatment: Patient with a hx of ADD and substance abuse. Treated both inpatient and oupatient at [facility]. Currently not in [place]. Recently seen in [facility] on Mar 12, 2017 for amphetamine abuse. History of Inpatient Treatment: No Guns or firearms in home: No (Angela victor owning any weapons nad staes " I' m a felon". ) Social History Hx Alcohol Use: Yes Hx Tobacco Use: Yes Hx Substance Use: Yes (K2) Substance Use Type: Amphetamines-Stimulants, Nicotine/Cigarettes Other Substances Used: In the past. currently denies use. Hx of Substance Use Treatment: Yes Family Psychiatric History Negative Allergies-Medications (Allergen,Severity, Reaction): Coded Allergies: No Known Allergies (Unverified , 02/09/17) Reported Meds & Prescriptions Reported Meds & Active Scripts Active No Active Prescriptions or Reported Medications Review of Systems Except as stated in HPI: all other systems reviewed are Neg Mental Status Examination Appearance: Appropriate Consciousness: Alert Orientation: x4 Motor Activity: Normal gait Speech: Unremarkable Language: Adequate Fund of Knowledge: Adequate Attention and Concentration: Adequate Memory: Unremarkable Mood: Appropriate Affect: Appropriate Thought Process & Associations: Intact, Logical Thought Content: Appropriate Hallucination Type: None Delusion Type: None Suicidal Ideation: No Suicidal Plan: No Suicidal Intention: No Homicidal Ideation: No Homicidal Plan: No Homicidal Intention: No Insight: Poor Judgment: Impulsive MDM Medical Decision Making Medical Record Reviewed: Yes Assessment/Plan 21-year-old male with history of substance use disorder who presents to Ed accompanied by his grandfather voluntarily for psychiatric evaluation. The grandfather reported that the patient had made a statement indicating he wanted to shoot himself. Upon arrival to the Ed he appeared to be intoxicated and admitted to " injecting "one third of ice and Stardust." Patient was allowed to sleep . He did not present any behavioral concerns and no suicidal or homicidal ideation, intent or plan. No evidence of any unstable mental illness as defined under the Lind act. Patient is provided psychoeducation. Encouraged to follow up with [facility] for substance use disorder. Orders Orders Complete Blood Count With Diff (04/13/17 17:31) Comprehensive Metabolic Panel (04/13/17 17:31) Psych Screen (04/13/17 17:31) Drug Screen, Random Urine (04/13/17 17:31) Alcohol (Ethanol) (04/13/17 17:31) Salicylates (Aspirin) (04/13/17 17:31) Tylenol (Acetaminophen) (04/13/17 17:31) Diet Regular Basic (04/13/17 Dinner) Diet Regular Basic (04/14/17 Breakfast) Diet Regular Basic (04/14/17 Lunch) Diet Regular Basic (04/14/17 Dinner) Results Vital Signs Date Time Temp Pulse Resp B/P (MAP) Pulse Ox O2 Delivery O2 Flow Rate FiO2 04/14/17 15:26 04/14/17 15:09 61 20 109/57 (74) Room Air 04/14/17 10:00 61 20 109/57 (74) Room Air 04/14/17 06:47 96.5 56 16 111/58 (75) 100 Room Air 04/14/17 02:13 64 18 105/55 (72) 100 Room Air 04/13/17 17:40 97.6 84 18 122/65 (84) 98 Room Air 04/13/17 17:00 98.2 95 18 110/75 (87) 99 Laboratory Tests Test 04/13/17 17:46 04/14/17 06:40 White Blood Count 9.2 Red Blood Count 4.65 Hemoglobin 15.1 Hematocrit 42.5 Mean Corpuscular Volume 91.3 Mean Corpuscular Hemoglobin 32.5 Mean Corpuscular Hemoglobin Concent 35.6 Red Cell Distribution Width 13.5 Platelet Count 266 Mean Platelet Volume 7.9 Neutrophils (%) (Auto) 70.1 Lymphocytes (%) (Auto) 18.7 Monocytes (%) (Auto) 6.7 Eosinophils (%) (Auto) 0.2 Basophils (%) (Auto) 4.3 Neutrophils # (Auto) 6.5 Lymphocytes # (Auto) 1.7 Monocytes # (Auto) 0.6 Eosinophils # (Auto) 0.0 Basophils # (Auto) 0.4 CBC Comment AUTO DIFF Differential Comment AUTO DIFF CONFIRMED Platelet Estimate NORMAL Platelet Morphology Comment NORMAL Red Cell Morphology Comment NORMAL Blood Urea Nitrogen 15 Creatinine 0.89 Random Glucose 81 Total Protein 7.9 Albumin 4.2 Calcium Level 8.8 Alkaline Phosphatase 74 Aspartate Amino Transf (AST/SGOT) 31 Alanine Aminotransferase (ALT/SGPT) 105 Total Bilirubin 1.3 Sodium Level 138 Potassium Level 3.9 Chloride Level 105 Carbon Dioxide Level 23.3 Anion Gap 10 Estimat Glomerular Filtration Rate 109 Salicylates Level LESS THAN 1.7 Acetaminophen Level LESS THAN 2.0 Ethyl Alcohol Level LESS THAN 3 Urine Opiates Screen NEG Urine Barbiturates Screen NEG Urine Amphetamines Screen POS Urine Benzodiazepines Screen POS Urine Cocaine Screen NEG Urine Cannabinoids Screen POS Diagnosis Primary Impression: Substance abuse Psychiatrically Cleared: Yes Referrals: [facility] (Out patient) as needed Medication Management [facility] as needed Mental Health and Substance Abuse inpatient facility [facility] Departure Forms: Tests/Procedures Patient Instructions: General Instructions, Mood Disorders (ED), Medical Clearance for Psychiatric Care (ED) Additional Instructions: DX: Substance Induced Mood Disorder Please return to ED if symptoms worsen. Med/ Other Pt Specific Info: No Meds Exist/No RX given Prescriptions No Active Prescriptions or Reported Meds Disposition: 01 DISCHARGE HOME Condition: Kaylan Watson Apr 14, 2017 15:50
== END 2017-04-14 17:23 | disposition home or self-care (01) ==
LOC: NEPJ 16:58
DX: F19.94 Other psychoactive substance use, unspecified with psychoactive substance-induced mood disorder (principal); F98.8 Other specified behavioral and emotional disorders with onset usually occurring in childhood and adolescence; Z72.0 Tobacco use
CPT/HCPCS: 80053; 80307; 85025; 99284